=== PATIENT | male | born 2000 | race Caucasian/White ===

== ENCOUNTER 2024-10-31 14:27 | Emergency (ER) | payer SELFPAY ==
[~2024-10-31] VITALS: Ht 182.9 cm; Wt 93.5 kg
[2024-10-31 14:30] VITALS: BP 147/84; TEMP 98.4; O2SAT 100
== END 2024-10-31 19:59 | disposition left against medical advice (07) ==
LOC: M ED 14:27
DX: Z53.21 Procedure and treatment not carried out due to patient leaving prior to being seen by health care provider (principal)

== ENCOUNTER 2025-04-13 15:25 | Emergency (ER) | payer OTHER ==
[~2025-04-13] VITALS: Ht 180.3 cm; Wt 85.5 kg
[2025-04-13] MEDS ORDERED: AMOX875T2 PO (16:19)
[2025-04-13] MEDS ORDERED: RABIES IMMUNE GLOBULIN 1500 INTERNATIONAL UNIT/5 ML VIAL IM.IMMUN ONE (16:25)
[2025-04-13] MEDS: RABIES VACCINE HUMAN 2.5 INTERNATIONAL UNITS/ML VIAL (IMOVAX) IM ONE (17:24)
[2025-04-13] MEDS: RABIES IMMUNE GLOBULIN 300 INTERNATIONAL UNITS/1 ML VIAL IM.IMMUN ONE (17:25)
[2025-04-13] MEDS: RABIES IMMUNE GLOBULIN 1500 INTERNATIONAL UNIT/5 ML VIAL IM.IMMUN ONE (17:25)
[2025-04-13 17:48] VITALS: BP 136/96; TEMP 96.7; O2SAT 100
== END 2025-04-13 18:03 | disposition home or self-care (01) ==
LOC: M ED 15:25
DX: S61.431A Puncture wound without foreign body of right hand, initial encounter (principal); W54.0XXA Bitten by dog, initial encounter; Z20.3 Contact with and (suspected) exposure to rabies; Z29.14 Encounter for prophylactic rabies immune globulin; Z23 Encounter for immunization; Y92.009 Unspecified place in unspecified non-institutional (private) residence as the place of occurrence of the external cause; Y93.89 Activity, other specified; Y99.9 Unspecified external cause status; Z79.2 Long term (current) use of antibiotics

== ENCOUNTER 2025-04-16 13:24 | Emergency (ER) | payer OTHER ==
[~2025-04-16] VITALS: Ht 180.3 cm; Wt 86.4 kg
[~2025-04-16 13:24] MED LIST: AMOX875T2 PO
[2025-04-16] MEDS: RABIES VACCINE HUMAN 2.5 INTERNATIONAL UNITS/ML VIAL (IMOVAX) IM ONE (13:48)
[2025-04-16 13:58] VITALS: BP 136/63; TEMP 98.7; O2SAT 100
== END 2025-04-16 14:03 | disposition home or self-care (01) ==
LOC: M ED 13:24
DX: Z20.3 Contact with and (suspected) exposure to rabies (principal); Z29.14 Encounter for prophylactic rabies immune globulin; Z23 Encounter for immunization; Z79.2 Long term (current) use of antibiotics